=== PATIENT | female | born 1960 | race Caucasian/White ===

== ENCOUNTER 2017-10-31 18:46 | Emergency (ER) | payer SELFPAY ==
[~2017-10-31] VITALS: Ht 165.1 cm; Wt 75.0 kg
[~2017-10-31 18:46] MED LIST: DOXY100T PO; LORT5TAB PO; SULF1TAB47 PO; Z.0.NO CURRENT MEDS
[2017-10-31 18:47] VITALS: BP 162/83; PULSE 83; RESP 16; TEMP 98.5; O2SAT 98
--- NOTE | 2017-10-31 19:25 | RADRPT ---
EXAM DATE/TIME: 10/31/2017 19:11 [place] COMPARISON: No previous studies available for comparison. INDICATIONS : Patient complains of left knee pain in entire knee. Patient fell on [place] landing on left knee. P ain when weight bearing. MEDICAL HISTORY : None. SURGICAL HISTORY : None. ENCOUNTER: Initial ACUITY: 2 weeks PAIN SCORE: 8/10 LOCATION: Left Knee FINDINGS: Four view examination of the left knee demonstrates no evidence of fracture or dislocation. Bony min eralization is normal. The articular surfaces are intact. The suprapatellar soft tissues have a nor mal configuration. CONCLUSION: Unremarkable examination of the left knee. Miguel Devi MD on October 31, 2017 at 19:22 Board Certified Radiologist. This report was verified electronically.
[2017-10-31] MEDS ORDERED: IBUP-232 PO (21:58)
--- NOTE | 2017-10-31 21:58 | PD ---
HPI Chief Complaint: Musculoskeletal Complaint Time Seen by Provider: 21:34 Travel History International Travel<30 days: No Contact w/Intl Traveler<30days: No Traveled to known affect area: No History of Present Illness HPI 56-year-old female presents the emergency department with recurrent left knee pain, swelling, locking, and giving out. Patient states no specific injury. She states it started approximately 2 weeks ago while increasing her regular workout. Patient states the first time it happened the knee locked up and she fell. Patient states she's been trying [id number] medications as well as heat and ice without improvement. She seems to think it comes and goes , and was much worse last evening. Currently the pain is about a 6 out of 10. She states the swelling has gone down since yesterday. Patient has multiple allergies. Please see list. PFSH Past Medical History Diminished Hearing: No : 4 Para: 3 Miscarriage: 1 Past Surgical History Abdominal Surgery: Yes (LAPAROSCOPY FOR ENDOMETRIOSIS AGE 16 X 3) Tonsillectomy: Yes Social History Alcohol Use: Yes (WINE, ONE PER WEEK) Tobacco Use: No Substance Use: No Allergies-Medications (Allergen,Severity, Reaction): Coded Allergies: diatrizoate meglumine (Unverified Allergy, Severe, EDEMA, 10/31/17) gadobenic acid (Unverified Allergy, Severe, EDEMA, 10/31/17) gadodiamide (Unverified Allergy, Severe, EDEMA, 10/31/17) gadoteridol (Unverified Allergy, Severe, EDEMA, 10/31/17) iodixanol (Unverified Allergy, Severe, EDEMA, 10/31/17) iohexol (Unverified Allergy, Severe, EDEMA, 10/31/17) Reported Meds & Prescriptions Reported Meds & Active Scripts Active Lortab 5/500 (Acetaminophen/Hydrocodone Bitart) 5 Mg/500 Mg Tab 1-2 Tab PO Q6HPRN Vibramycin (Doxycycline Hyclate) 100 Mg Cap 100 Mg PO BID Bactrim Ds (Trimethoprim/Sulfamethoxazole) Tab 1 Tab PO BID Reported No Current Meds (Miscellaneous Medication) Misc Review of Systems Except as stated in HPI: all other systems reviewed are Neg General / Constitutional: No: Fever Eyes: No: Visual changes HENT: No: Headaches Cardiovascular: No: Chest Pain or Discomfort Respiratory: No: Shortness of Breath Gastrointestinal: No: Abdominal Pain Genitourinary: No: Dysuria Musculoskeletal: Positive: Arthralgias, Limited ROM, Pain Skin: No Rash Neurologic: No: Weakness Psychiatric: No: Depression Endocrine: No: Polydipsia Hematologic/Lymphatic: No: Easy Bruising Physical Exam Narrative GENERAL: Patient appears in no obvious distress. SKIN: Warm and dry. Normal color. Normal turgor. No signs of infection. HEAD: Atraumatic. Normocephalic. EYES: Pupils equal and round. No scleral icterus. No injection or drainage. ENT: No nasal bleeding or discharge. Mucous membranes pink and moist. NECK: Trachea midline. No JVD. CARDIOVASCULAR: Regular rate and rhythm. RESPIRATORY: No accessory muscle use. Clear to auscultation. Breath sounds equal bilaterally. GASTROINTESTINAL: Abdomen soft, non-tender, nondistended. Hepatic and splenic margins not palpable. MUSCULOSKELETAL: Extremities without clubbing, cyanosis, or edema. No obvious deformities. Left knee appears mildly swollen. She has pain with palpation along both joint lines, without obvious laxity. Exam is somewhat limited secondary to patient's discomfort. No obvious weakness is noted. NEUROLOGICAL: Awake and alert. No obvious cranial nerve deficits. Motor grossly within normal limits. Five out of 5 muscle strength in the arms and legs. Normal speech. PSYCHIATRIC: Appropriate mood and affect; insight and judgment normal. Data Data Last Documented VS Vital Signs Date Time Temp Pulse Resp B/P (MAP) Pulse Ox O2 Delivery O2 Flow Rate FiO2 10/31/17 18:47 98.5 83 16 162/83 (109) 98 Room Air Orders Orders Knee, Complete (4vws) (10/31/17 ) Splint Or Brace Apply/Monitor (10/31/17 21:52) Crutches (10/31/17 21:52) MDM Medical Decision Making Medical Screen Exam Complete: Yes Emergency Medical Condition: Yes Differential Diagnosis Left knee pain. Left knee effusion. Cartilage injury. Narrative Course X-rays were ordered in triage. X-ray shows no acute process per radiologist. Patient will be treated with knee immobilizer and crutches. Patient also given ibuprofen 600 mg 4 times a day #40. Patient is given mandatory referral to Dr. Miller, for further evaluation and treatment. Diagnosis Primary Impression: Effusion, left knee Referrals: Job Moya MD Patient Instructions: General Instructions, Meniscus Tear (ED), Swollen Knee Joint (ED) Additional Instructions: X-ray shows no acute process per radiologist. Patient will be treated with knee immobilizer and crutches. Patient also given ibuprofen 600 mg 4 times a day #40. Patient is given mandatory referral to Dr. Miller, for further evaluation and treatment. Med/Other Pt SpecificInfo: Prescription(s) given Disposition: 01 DISCHARGE HOME Condition: Stable Jeremy Maciel Oct 31, 2017 21:58
== END 2017-10-31 22:42 | disposition home or self-care (01) ==
LOC: NEPK 18:46
DX: M25.462 Effusion, left knee (principal)
CPT/HCPCS: 73564; 99283; E0113; L1830